=== PATIENT | male | born 1945 | race Caucasian/White ===

== ENCOUNTER 2021-01-01 10:46 | Emergency (ER) | payer MEDICARE, BC ==
--- NOTE | 2021-01-01 11:16 | EDM.PDOC ---
ED HPI GENERAL MEDICAL PROBLEM - General Chief Complaint: ENT Problem Stated Complaint: NOSEBLEED Time Seen by Provider: 01/01/21 11:00 Source of Information: Reports: Patient, Family (spouse) History Limitations: Reports: No Limitations - History of Present Illness INITIAL COMMENTS - FREE TEXT/NARRATIVE: 75-year-old male presents to the ED for evaluation of persistent bleeding from the right naris. He has had fairly frequent nosebleeds over the last several years. He has had previous nasal septal surgery several years ago. He has had multiple cauterizations by ENT as well as packing with a Rhino Rocket for greater than a week at a time. His nosebleeds have been severe enough that required blood transfusions in the past. He did have a minor nosebleed last night which he was able to stop on his own with just direct pressure. This morning about 830 shortly after getting up he sneezed aggressively and his nose started to bleed once again from the right naris. Swallowing some blood as well. On the way here with direct pressure it seemed to stop prior to coming into the ED. He is very hard of hearing. He does not report any nausea or vomiting. He feels that he did catch a cold over the last week. Denies much of a cough and no sputum production. She has had previous stenting but had severe bleeding associated with use of Plavix after stenting and the Plavix had to be discontinued. 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) (1.) - Related Data Allergies Allergy/AdvReac Type Severity Reaction Status Date / Time lisinopril Allergy Cough Verified 01/01/21 10:56 Penicillins Allergy Rash Verified 01/01/21 10:56 ranitidine [From Zantac] Allergy Airway Verified 01/01/21 10:56 Tightness Past Medical History HEENT History: Reports: Impaired Vision Cardiovascular History: Reports: Stents Other Cardiovascular History: 2018 Social & Family History - Tobacco Use Tobacco Use Status *Q: Former Tobacco User Used Tobacco, but Quit: Yes Month/Year Tobacco Last Used: 03/1966 - Recreational Drug Use Recreational Drug Use: No - Living Situation & Occupation Living situation: Reports: Occupation: Retired ED ROS ENT - Review of Systems Review Of Systems: See Below Constitutional: Reports: Decreased Appetite. Denies: Fever, Chills, Malaise, Weakness, Fatigue, Weight Loss HEENT: Reports: Nosebleed (Right naris recurrently) Respiratory: Reports: No Symptoms Cardiovascular: Denies: Chest Pain, Blood Pressure Problem, Claudication, Dyspnea on Exertion, Edema, Lightheadedness, Orthopnea, Palpitations Endocrine: Reports: No Symptoms GI/Abdominal: Reports: No Symptoms : Reports: Frequency, Other (Nocturia x2) Musculoskeletal: Reports: Joint Pain (His hips low back and neck at times) Skin: Reports: No Symptoms Neurological: Reports: No Symptoms Psychiatric: Reports: No Symptoms Hematologic/Lymphatic: Reports: No Symptoms ED EXAM, ENT - Physical Exam Exam: See Below Exam Limited By: Physical Impairment (Moderately hard of hearing. Not wearing hearing aids.) General Appearance: Alert, WD/WN, Mild Distress Eye Exam: Bilateral Eye: Normal Inspection (No blepharal pallor or scleral icterus.) Nose: Other (No bleeding appreciated on visualization of the left naris. There is no active bleeding at present from the right nares but it appears to be co rosales from a deformity in the mid septum where he has had previous nasal septal surgery. There is a protuberance into the right naris and the bleeding is co) Mouth/Throat: Other (There is fresh blood in the patient's posterior oropharynx.) Head: Atraumatic, Normocephalic Neck: Normal Inspection, Supple, Non-Tender, Full Range of Motion. No: Carotid Bruit, Lymphadenopathy (L), Lymphadenopathy (R), Thyromegaly Respiratory/Chest: No Respiratory Distress, Lungs Clear, Normal Breath Sounds, No Accessory Muscle Use Cardiovascular: Normal Peripheral Pulses, Regular Rate, Rhythm, No Edema, No Gallop, No Murmur, No Rub ED ENT PROCEDURES - Epistaxis Procedure Indication: Epistaxis Recent anticoagulants/antiplatlets: No Uncontrolled HTN: No Recent septal/nasal surgery: No Site of bleeding: Right Nare Clearing of clots: Other (No clots were present at the time of my examination.) Ice pack to area: No Chemical cautery: Silver Nitrate Topical Course - Vital Signs Last Recorded V/S: Last Vital Signs Temp 36.2 C 01/01/21 10:57 Pulse 67 01/01/21 10:57 Resp 18 01/01/21 10:57 BP 142/89 H 01/01/21 10:57 Pulse Ox 98 01/01/21 10:57 - Radiology Interpretation Free Text/Narrative:: 75-year-old male presents to the ED with right-sided epistaxis starting about 830 this morning after sneezing aggressively. Patient has a history of recurrent right-sided epistaxis since nasal septal surgery was performed a couple of years ago. He did have some mild bleeding last evening which they were were able to bring under control with direct pressure. This morning the bleeding persisted but with direct pressure on route to the hospital he finally got the bleeding to stop. He swallowed a good deal of blood. There was no blood exiting the left nares. On initial evaluation I could identify a site of bleeding with superficial ulceration of the mucosa. It was cauterized with silver nitrate. I will revisit the patient in 10 minutes time - Re-Assessments/Exams Free Text/Narrative Re-Assessment/Exam: 01/01/21 11:20: On reexamination there is 1 area anterior to where I cauterized that still looks raw but the bleeding has stopped. I did cauterize this raw area with silver nitrate x2. I will review him again in 10 minutes. 01/01/21 11:38: Silver nitrate was applied once more to a small strip anterior to where I had cauterized prior. No active bleeding is present. Patient will be discharged to home to return to the ED if any further bleeding occurs. Departure - Departure Time of Disposition: 11:47 Disposition: Home, Self-Care 01 Condition: Fair Clinical Impression: Epistaxis not due to trauma - Discharge Information *PRESCRIPTION DRUG MONITORING PROGRAM REVIEWED*: Not Applicable *COPY OF PRESCRIPTION DRUG MONITORING REPORT IN PATIENT FILI: Not Applicable Instructions: Nosebleed, Adult Referrals: PCP,Not In Area [Primary Care Provider] - Forms: ED Department Discharge Additional Instructions: Evaluation in the emergency room this morning in regards to recurrent bleeding from the right side of your nose after sneezing aggressively this morning. As you indicated nosebleeds occur frequently after coughing or sneezing hard. Mu ltiple problems with the right side of the nose bleeding. Identified an area on the mid nasal septum and anterior nasal septum that has been bleeding. Sites were cauterized with silver nitrate x2. Any further problems return to the emergency room if bleeding reoccurs. Sepsis Event Note (ED) - Evaluation Sepsis Screening Result: No Definite Risk - Focused Exam Vital Signs: Vital Signs Temp Pulse Resp BP Pulse Ox 01/01/21 10:57 36.2 C 67 18 142/89 H 98
== END 2021-01-01 12:00 | disposition home or self-care (01) ==
LOC: JD.ED 10:46
DX: R04.0 Epistaxis (principal); Z87.891 Personal history of nicotine dependence; Z88.8 Allergy status to other drugs, medicaments and biological substances; Z88.0 Allergy status to penicillin
CPT/HCPCS: 30901; 99282; 99283-25